=== PATIENT | male | born 1950 | race Caucasian/White ===

== ENCOUNTER 2020-07-11 08:20 | Outpatient (REF) | payer MEDICARE, SELFPAY ==
--- NOTE | 2020-07-11 08:25 | FL_ITS ---
EXAMINATION: XR GI SERIES CLINICAL INFORMATION: Heartburn. Reflux. COMPARISON: None TECHNIQUE: Fluoroscopic assessment of the upper GI tract was performed in various upright and supine/prone obliquities utilizing thin and thick high density barium contrast material and effervescent granules. FINDINGS: Normal oral bolus control and transfer. Normal posterior tilt of the epiglottis with elevation of the hyoid. The esophagus was normal in course, caliber, and contour. There was normal distensibility with no fixed segment of narrowing. No focal mucosal abnormality was identified. Mild esophageal dysmotility was observed. Contrast passed freely across the gastroesophageal junction into the stomach. There is a sliding hiatal hernia which is identified. This was not present with the patient in the upright position. Upon laying down and rolling on the table, a small to moderate sliding hiatal hernia was produced. There was normal distensibility of the stomach with no focal abnormality identified. There was prompt gastric emptying into the duodenum which demonstrated a normal appearance. Moderate to severe gastroesophageal reflux was observed, to the level of the thoracic inlet. FLUOROSCOPY TIME: 1.7 minutes DOSE AREA PRODUCT: 22.922 Gy-cm2 (ko-centimeter squared) IMPRESSION: Small to moderate sliding hiatal hernia. Moderate to severe gastroesophageal reflux is noted. Mild esophageal dysmotility.
== END 2020-07-11 08:21 | disposition home or self-care (01) ==
LOC: HO.XRAY 08:20
PROVIDERS: PCP Internal Medicine; Visit Provider Internal Medicine
DX: R12 Heartburn (principal)
CPT/HCPCS: 74240

== ENCOUNTER 2022-01-15 09:05 | Outpatient (REF) | payer MEDICARE, SELFPAY ==
[2022-01-15 11:11] LABS: MANUAL DIFF FLAG NO
[2022-01-15 11:27] LABS: Basophils Absolute Auto 0.1 X10*3/uL (0.0-0.2); Basophils Percent Auto 0.7 % (0-2); Eosinophils Absolute Auto 0.4 X10*3/uL (0.0-0.4); Eosinophils Percent Auto 5.3 % (0-4); Hematocrit 43.8 % (42.0-52.0); Hemoglobin 14.7 g/dl (14.0-18.0); Imm Gran Abs Auto 0.04 X10*3/uL (0.00-0.03); Imm Gran Pct Auto 0.5 % (0.0-0.4); Lymphocytes Absolute Auto 1.5 X10*3/uL (1.2-4.9); Lymphocytes Percent Auto 19.9 % (20-40); Mean Corpuscular HGB Conc 33.6 g/dl (31.0-36.0); Mean Corpuscular Hemoglobin 27.9 pg (27.0-33.0); Mean Corpuscular Volume 83.3 fL (80.0-98.0); Mean Platelet Volume 9.9 fL (9.4-12.4); Monocytes Absolute Auto 1.1 X10*3/uL (0.1-1.2); Neutrophils Absolute Auto 4.3 x10*3/uL (2.0-8.3); Neutrophils Percent Auto 58.6 % (45-73); Platelet Count 204 X10*3/uL (160-400); Red Blood Count 5.26 X10*6/uL (4.60-5.80); Red Cell Distribution Width 13.9 % (11.0-16.0); White Blood Count 7.4 X10*3/uL (4.8-10.8)
[2022-01-15 11:52] LABS: PSA,Total (Free>4and<10) 0.79 ng/mL (0.00-4.00); TSH reflex Free T4 1.35 uIU/mL (0.32-4.0); Vitamin D 25-OH Total 24.8 ng/mL (>30)
[2022-01-15 12:05] LABS: Alanine Aminotransferase 48 U/L (0-40); Anion Gap 11 (12-20); Aspartate Amino Transferase 39 U/L (5-37); Blood Urea Nitrogen 16 mg/dL (9-16); Calcium 9.4 mg/dL (8.4-10.2); Carbon Dioxide 25 mmol/L (22-29); Chloride 109 mmol/L (96-108); Cholesterol 80 mg/dL; Estimated Glomerular Filt Rate > 60; Glucose Fasting 95 mg/dL (60-99); HDL Cholesterol 32 mg/dL; LDL Cholesterol Calculated 32 mg/dl; Potassium 4.2 mmol/L (3.3-5.1); Sodium 141 mmol/L (135-145); Triglycerides 82 mg/dL
[2022-01-15 12:07] LABS: Folate 15.7 ng/mL (> or = 4.0); Vitamin B12 404 pg/mL (200-900)
== END 2022-01-15 09:06 | disposition home or self-care (01) ==
LOC: HO.HMGCLDS 09:05
PROVIDERS: PCP Internal Medicine; Visit Provider Internal Medicine
DX: Z00.00 Encounter for general adult medical examination without abnormal findings (principal); Z12.5 Encounter for screening for malignant neoplasm of prostate; K21.9 Gastro-esophageal reflux disease without esophagitis; Z71.89 Other specified counseling
CPT/HCPCS: 36415; 80048; 80061; 82306; 82607; 82746; 84153; 84443; 84450; 84460; 85025

== ENCOUNTER 2023-02-09 08:14 | Outpatient (REF) | payer MEDICARE, SELFPAY ==
--- NOTE | ~2023-02-09 | US_ITS ---
EXAMINATION: US RETROPERITONEAL LIMITED (RENAL ONLY) CLINICAL INFORMATION: Personal history of urinary calculi. COMPARISON: None available. TECHNIQUE: Real-time imaging of the kidneys. FINDINGS: RIGHT KIDNEY: 10.4 x 5.4 x 6.8 cm (SAG x AP x TRV). The kidney is normal in size, contour, and echogenicity. Renal cortical thickness is normal. No calculi or focal parenchymal lesions. No hydronephrosis. LEFT KIDNEY: 10.1 x 5.6 x 5.8 cm (SAG x AP x TRV). The kidney is normal in size, contour, and echogenicity. Renal cortical thickness is normal. No calculi or focal parenchymal lesions. No hydronephrosis. US/US renal BI IMPRESSION: No hydronephrosis or nephrolithiasis.
[2023-02-09 11:54] LABS: Alanine Aminotransferase 52 U/L (0-40); Albumin Level 3.9 g/dL (3.5-5.0); Alkaline Phosphatase 83 U/L (39-117); Anion Gap 12 (12-20); Aspartate Amino Transferase 43 U/L (5-37); Bilirubin Total 0.9 mg/dL (0.0-1.0); Blood Urea Nitrogen 11 mg/dL (9-16); Calcium 9.4 mg/dL (8.4-10.2); Carbon Dioxide 27 mmol/L (22-29); Chloride 108 mmol/L (96-108); Cholesterol 87 mg/dL; Estimated Glomerular Filt Rate > 60; Glucose Fasting 110 mg/dL (60-99); HDL Cholesterol 28 mg/dL; LDL Cholesterol Calculated 16 mg/dl; Potassium 3.6 mmol/L (3.3-5.1); Sodium 143 mmol/L (135-145); Triglycerides 217 mg/dL
[2023-02-09 12:16] LABS: PSA,Total (Free>4and<10) 1.13 ng/mL (0.00-4.00); Vitamin D 25-OH Total 24.9 ng/mL (>30)
== END 2023-02-09 08:15 | disposition home or self-care (01) ==
LOC: HO.HMGCX 08:14
PROVIDERS: PCP Internal Medicine; Visit Provider Internal Medicine
DX: Z00.01 Encounter for general adult medical examination with abnormal findings (principal); Z12.5 Encounter for screening for malignant neoplasm of prostate; K21.9 Gastro-esophageal reflux disease without esophagitis; Z87.442 Personal history of urinary calculi
CPT/HCPCS: 36415; 76775; 80053; 80061; 82306; 84153

== ENCOUNTER 2024-07-27 14:35 | Outpatient (AMB) | payer MEDICARE, SELFPAY ==
--- NOTE | 2024-07-27 14:52 | A.OFFPC_ITS ---
Vital Signs 07/27/24 14:55 Height 5 ft 6 in Weight 168 lb BMI 27.1 BP 138/70 Blood Pressure Location Lt brachial Position Sitting Pulse 70 Pulse Source Pulse Oximeter Pulse Oximetry (%) 99 Oxygen Delivery Method Room Air Intake Visit Reasons: PE Intake Note: Pt is here today for her PE: last 11/21/19 Allergies No Known Allergies Allergy (Verified 07/27/24 15:17) Medication List - Last Reconciled 07/27/24 by Carmen Rivera MD cholecalciferol (vitamin D3) 25 mcg PO DAILY famotidine 20 mg PO DAILY omega-3 fatty acids (Fish Oil Concentrate) 1,000 mg PO DAILY Tobacco use date assessed: 07/27/24 Fall risk assessment: No Falls in past year Last assessed Fall Risk: 07/27/24 Dental Screening Dental Screen Date: 07/27/24 Did you have a dental visit in the last 12 months?: Yes Did you have a dental problem in the last 6 months where you did not have access to dental care?: Yes Was dental information given to patient?: Patient has dentist HPI PE HPI Details 74-year-old male here today for physical exam. He has been feeling well, last colonoscopy was done in 2019 which removal of a tubular adenoma, for repeat colonoscopy in 2024. He takes famotidine for his GERD and sliding hiatal hernia. Up-to-date with all his vaccinations including his shingles vaccine, Tdap and pneumonia vaccine, but has not yet had his yearly flu shot and COVID booster PFSH Medical History (Updated 07/27/24 @ 15:27 by Carmen Rivera MD) Elevated liver transaminase level Hypertriglyceridemia Impaired fasting glucose Hx of renal calculi Erectile dysfunction Esophageal dysmotility Sliding hiatal hernia GERD (gastroesophageal reflux disease) Surgical History History of cataract surgery H/O vasectomy History of tonsillectomy and adenoidectomy History of appendectomy Family History Father Unknown family medical history Mother Unknown family medical history Social History Housing: House Alcohol intake: current Patient Tobacco Use Status: Never used Tobacco e-Cigarette/Vaping Use: Never Used Advance Directives Date on File: 07/11/20 service: No Current occupational status: retired Cognitive needs: No Hearing needs: No Vision needs: Yes Questionnaire PHQ-9 Over the last 2 weeks, how often have you been bothered by any of the following problems? 1. Little interest or pleasure in doing things: not at all 2. Feeling down, depressed, or hopeless: not at all 3. Trouble falling or staying asleep, or sleeping too much: not at all 4. Feeling tired or having little energy: not at all 5. Poor appetite or overeating: not at all 6. Feeling bad about yourself - or that you are a failure or have let yourself or your family down: not at all 7. Trouble concentrating on things, such as reading the newspaper or watching television: several days 8. Moving or speaking so slowly that other people could have noticed. Or the opposite - being so fidgety or restless that you have been moving around a lot more than usual: not at all 9. Thoughts that you would be better off or of hurting yourself in some way: not at all Total score: 1 Depression Screening Interpretation: Negative Depression Screening Done: Yes 10292 - PHQ-9 Billing: Yes Source: Developed by Drs. Eliazar Clancy, Anabel Burnett, Zhou Kenney and colleagues, with an educational olya from [employer]. Thrive Questionnaire Date Thrive assessed: 01/18/23 I am a: Patient What is your living situation today?: I have a steady place to live Within the past 12 months, did the food you bought not last and you didn't have the money to get more?: Never true Within the past 12 months, did you worry whether your food would run out before you got money to buy more?: Never true Do you have trouble paying for medicines?: No Do you have trouble getting transportation to medical appointments?: No Do you have trouble paying your heating and electricity bill?: No Do you have trouble taking care of your child, family member or friend?: No Do you have trouble with day-to-day activities such as bathing, preparing meals, shopping, managing finances, etc.?: No Are you currently unemployed and looking for a job?: No Are you interested in more education?: No Please select the resources that you would like help with: None Currently or been in a relationship where the following occur: No concerns reported THRIVE Score: 0 AUDIT C Alcohol Use Questionnaire (AUDIT-C) 1. How often do you have a drink containing alcohol?: Monthly or less 2. How many drinks containing alcohol do you have on a typical day when you are drinking?: 1 or 2 3. How often do you have six or more drinks on one occasion?: Never Total Score: 1 RIP-7 AMB Questionnaire RIP-7 Date RIP - 7 assessed: 01/18/23 Feeling nervous, anxious, or on edge: 0 = Not at all Not being able to stop or control worryin = Not at all Worrying too much about different things: 0 = Not at all Trouble relaxin = Not at all Being so restless that it is hard to sit still: 0 = Not at all Becoming easily annoyed or irritable: 0 = Not at all Feeling afraid as if something awful might happen: 0 = Not at all Total RIP-7 score (0-4 normal; 5-9 mild; 10-14 moderate; 15-21 severe): 0 Source: Developed by Drs. Eliazar Clancy, Anabel Burnett, Zhou Kenney and colleagues, with an educational olya from [employer]. RIP-7 Assessment Billing RIP-7 Assessment Tool: RIP-7 Assessment 29508 Review of Systems Const Denies body aches, Denies fatigue, Denies fever(s), Denies headache(s) and Denies weakness Eyes Reports no additional complaints and Reports requires corrective lenses ENT Denies halitosis, Denies change in voice, Denies dysphagia, Denies dizziness, Denies dry mouth, Denies headache(s), Denies nasal congestion, Denies nasal discharge, Denies sore throat and Denies throat swelling Card Denies chest pain, Denies lightheadedness, Denies palpitations and Denies dyspnea Resp Denies chest congestion, Denies cough, Denies dyspnea and Denies wheezing GI Denies abdominal pain, Denies change in bowel habits, Denies dysphagia and Denies heartburn Denies dysuria, Denies urinary frequency and Denies urinary urgency Musc Reports no additional complaints Skin/Breast Denies rash Neuro Denies dizziness, Denies headache(s) and Denies weakness Psych Reports no additional complaints Endo Denies fatigue and Denies palpitations Amor/Lymph Denies easy bleeding and Denies easy bruising Aller/Immun Denies throat swelling and Denies wheezing Physical exam (Primary Care) Vital Signs: Last Vital Signs Pulse 70 07/27/24 14:55 BP 138/70 07/27/24 14:55 Pulse Ox 99 07/27/24 14:55 Oxygen Delivery Method Room Air 07/27/24 14:55 BMI result Body Mass Index 27.1 Tobacco/Smoking Status: Tobacco use Status Tobacco use date assessed 07/27/24 07/27/24 15:00 Patient Tobacco Use Status Never used Tobacco 07/27/24 15:00 e-Cigarette/Vaping Use Never Used 07/27/24 15:00 PHQ-9: PHQ-9 Score PHQ-9: Total score 1 07/27/24 15:21 Depression Screening Interpretation: Negative Thrive Assessment: Date of Thrive Assessment Date Thrive assessed 01/18/23 07/27/24 15:00 Currently or been in a relationship where the following occur: No concerns reported Advance Care Planning discussion: Completed/Scanned Date of discussion: 07/27/24 Who was present: Patient Forms completed: Health Care Proxy Time spent: 16-45 minutes Actual minutes spent: 2 Const General: no acute distress and alert Orientation/consciousness: patient oriented x3 HENMT Ears: external ears normal, TM's normal bilaterally and EAC's normal General nose exam: Normal external nose present and No nasal discharge present Mouth: oropharynx normal and moist mucous membranes Eyes General: appearance normal, both eyes and all related structures Conjunctivae: conjunctivae normal Sclerae: sclerae normal Pupils: Equal, round and reactive pupils present EOM: EOMs intact bilaterally Neck Neck: Yes full ROM, Yes no lymphadenopathy and Yes supple Chest Chest palpation & inspection: normal inspection of the chest Resp Effort & Inspection: normal respiratory effort and able to speak in complete sentences Auscultation: clear to auscultation bilaterally Cardio Rate: regular rate Rhythm: regular rhythm Heart sounds: S1 normal heart sound present and S2 normal heart sound present GI Palpation (GI): Soft to palpation, nontender and no masses Auscultation: normal bowel sounds General: Yes no CVA tenderness Male General Exam: Yes normal external exam Back/Spine/Pelvis Other: Mild kyphosis noted Back: no CVA tenderness and No back tenderness Skin General skin exam: no rashes or lesions noted Neuro General: patient oriented x3, gait normal, tone normal, moves all extremities, Normal light touch and pain sensation and no focal motor deficits Cranial nerves: Yes CN's II-XII intact bilaterally and Yes Equal, round and reactive pupils present Cognition (Neuro): normal cognition Extrem General: Yes full ROM, Yes no joint enlargement, Yes no clubbing, cyanosis or edema and Yes no calf tenderness Psych Appearance: grossly normal and well kempt Mental Status: mental status grossly normal Speech and movement: Normal speech and movement present Affect: normal affect Attitude: cooperative Thought process: Normal thought process present Coding Level of Care Code Est Pt Prev Care >65y(77184) Diagnoses Annual visit for general adult medical examination with abnormal findings Z00.01 Gastroesophageal reflux disease without esophagitis K21.9 Esophagitis presence: without esophagitis Impaired fasting glucose R73.01 Hypertriglyceridemia E78.1 Elevated liver transaminase level R74.01 Encounter for counseling regarding advance directives Z71.89 Additional Codes RIP-7 Assessment Billing - RIP-7 Assessment Tool: RIP-7 Assessment 64187 ([id number]) Vital Signs *Quality* - Advance Care Planning discussion: Completed/Scanned ([id number]) Vital Signs *Quality* - Time spent: 16-45 minutes ([id number]) Assessment & Plan Assessment & Plan (1) Annual visit for general adult medical examination with abnormal findings: Code(s): Z00.01 - Encounter for general adult medical examination with abnormal findings Plan: Will check appropriate labs. Continue regular dental visit every 6 months and regular eye exams, at least every 2 years. Take adequate calcium in diet and vitamin-D 3 at 2000 IU per cap once a day, in addition to weight-bearing exercises to help maintain good muscle tone and weight control. Instructed to do self testicular exam check for any mass. Up-to-date with his screening colonoscopy, due again in 2024. Up-to-date with all his vaccinations except for his flu and COVID booster (2) GERD (gastroesophageal reflux disease): Code(s): K21.9 - Gastro-esophageal reflux disease without esophagitis Category: Medical Qualifiers: Esophagitis presence: without esophagitis Qualified Code(s): K21.9 - Ga stro-esophageal reflux disease without esophagitis Plan: Takes famotidine 20 mg daily (3) Impaired fasting glucose: Code(s): R73.01 - Impaired fasting glucose Category: Medical Plan: Your previous fasting blood sugars were elevated above 100 mg/dL. Impaired glucose metabolism increases the risk for developing diabetes mellitus type 2, as well as heart attack and stroke later on. Lifestyle changes that promotes weight loss, healthy eating habits, and regular exercise are important, and can prevent the progression to diabetes (4) Hypertriglyceridemia: Code(s): E78.1 - Pure hyperglyceridemia Category: Medical Plan: Comprehensive metabolic panel and fasting lipid panel ordered. Reminded to follow-up in low-cholesterol diet and regular exercise, at least 30 minutes 3 to 4 times a week, not running anymore due to joint pain but advised to try medic exercises, assume at the local [facility]. Advised patient to make healthy food choices, eat more fruits, vegetables, whole grains, wild caught fish and low- fat dairy. Limit amount of meat and fried or fatty food products, as well as processed foods and fast foods. (5) Elevated liver transaminase level: Code(s): R74.01 - Elevation of levels of liver transaminase levels Category: Medical Plan: Comprehensive metabolic panel ordered, advised to stop alcohol intake (6) Encounter for counseling regarding advance directives: Code(s): Z71.89 - Other specified counseling Plan: Initiated the conversation about Advanced Directives. Advanced Directives help patients prepare for current and future decisions about their medical treatment and place of care. Discussed with patient that it is a process where a patients current condition and prognosis are reviewed, their wishes for information regarding their illness are elicited, and likely medical dilemmas are presented and options discussed. Healthcare proxy form completed. The form can be amended as needed, reviewed yearly and make changes as needed Orders: Orders Vitamin D 25-OH Total 07/27/24 E78.1 - Pure hyperglyceridemia, K21.9 - Gastro- esophageal reflux disease without esophagitis, R73.01 - Impaired fasting glucose, R74.01 - Elevation of levels of liver transaminase levels, Z00.01 - Encounter for general adult medical examination with abnormal findings, Z71.89 - Other specified counseling Lipid Panel 07/27/24 E78.1 - Pure hyperglyceridemia, K21.9 - Gastro-esophageal reflux disease without esophagitis, R73.01 - Impaired fasting glucose, R74.01 - Elevation of levels of liver transaminase levels, Z00.01 - Encounter for general adult medical examination with abnormal findings, Z71.89 - Other specified counseling Comprehensive [place]. Panel Fast 07/27/24 E78.1 - Pure hyperglyceridemia, K21.9 - Gastro-esophageal reflux disease without esophagitis, R73.01 - Impaired fasting glucose, R74.01 - Elevation of levels of liver transaminase levels, Z00.01 - Encounter for general adult medical examination with abnormal findings, Z71.89 - Other specified counseling
[2024-07-27 14:55] VITALS: BP 138/70; PULSE 70; O2SAT 99; BMI 27.1
== END 2024-07-27 15:40 | disposition home or self-care (01) ==
LOC: HO.HMCC 14:37
PROVIDERS: PCP Internal Medicine; Visit Provider Internal Medicine
DX: Z00.01 Encounter for general adult medical examination with abnormal findings (principal); K21.9 Gastro-esophageal reflux disease without esophagitis; R73.01 Impaired fasting glucose; E78.1 Pure hyperglyceridemia; R74.01 Elevation of levels of liver transaminase levels; Z71.89 Other specified counseling; Z00.00 Encounter for general adult medical examination without abnormal findings

== ENCOUNTER → 2024-07-27 14:35 | Outpatient (BNVA) | payer MEDICARE, SELFPAY | PROVIDERS: PCP Internal Medicine; Visit Provider Internal Medicine | DX: Z00.01 Encounter for general adult medical examination with abnormal findings (principal); K21.9 Gastro-esophageal reflux disease without esophagitis; R73.01 Impaired fasting glucose; R74.01 Elevation of levels of liver transaminase levels; E78.1 Pure hyperglyceridemia; Z71.89 Other specified counseling | CPT/HCPCS: 96127; 99397; 99497 ==

== ENCOUNTER 2024-09-09 08:12 | Outpatient (REF) | payer MEDICARE, SELFPAY ==
--- OUTSIDE RECORDS SUMMARY | 2024-09-09 08:14 | XMS_ITS | Patient Health Record ---
Author Organization [facility] Address [address] [place] [address] Care Team Providers Care Portable Canteen Operator Name Role Phone Miguel GRIMES, Carmen Primary Care Provider Eliazar Waddell Unavailable [phone] REASON FOR REFERRAL Referring Provider First Name Carmen Referring Provider Last Name Miguel Referring Provider Speciality Internal M edicine Referred Organization [facility] Referred Provider Eliazar Armando Referred Address [address],[place], [place],[address], Referred Provider Specialty Gastroentero logy General Notes Sharona Conley 024 03:40:38 PM EST > spoke with Yuli from Dr. Rivera' office to request an [facility] referral for visit with Dr. Armando on 10-04-2023 for a screening colon [phone] Referral Priority Routine MEDICATIONS Medication SIG (Take, Route, Frequency, Duration) Notes Start Date End Date Status Fish Oil 1000 MG 1 capsule Orally Onc e a day Active Aspirin 81 81 MG 1 tablet Orally Once a day Active Vitamin D (Ergocalciferol) 1 capsule Ora lly once a week Active IMMUNIZATIONS Vaccine Route Administration Date Status Comme nts Influenza Unknown 06/27/2019 Administered SOCIAL HISTORY Tobacco Use: Social History Observation Description Date Details (start date - stop date) Never Smoker NA - NA Sex Assigned At : Social History Observation Description Sex Assigned At Unknown Tobacco Use/Smoking Question Answer Notes Patient is a nonsmoker Alcohol Screen Question Answer Notes Did you have a drink contain ing alcohol in the past year? Yes How often did you have a dri nk containing alcohol in the past year? 2 to 3 times a week (3 points) How many drinks did you have on a typical day when you were drinking in the past year? 1 or 2 drinks (0 point) How often did you have 6 or more drinks on one occasion in the past year? Never (0 point) Points 3 Interpretation Negative PROBLEMS Problem Type ICD Code Onset Dates Problem Status W/U Status Risk SNOMED Code Notes Problem Encounter for screening for malignant neoplasm of colon (Z12.11) Active confirmed 365407098 Problem Preprocedural examination (Z01.818) Active confirmed [id number] PLAN OF TREATMENT Future Test Test Name Order Date COLONOSCOPY 10/31/2019 Next Appt Details Provider Name:Eliazar Armando , 10/04/2024 01:00:00 PM, [address] [place] [address], [address], [place], [address], Insurance Providers Payer Name Payer Address Payer Phone Subscriber Number Group Number Insured Name Patient Relationship to Insured Coverage Start Date Coverage End Date [facility] [address] [place] [address] [id number] FLOREZ Self - patient is the insured MEDICAL (GENERAL) HISTORY Medical History History ICD Code Denies MT,DM,CVA,Lung disease,renal dise ase Neg screening colonoscopy in 08/2009 exc ept for a hyperplastic polyp Surgical History Surgery Date(Month/Year) tonsillectomy vasectomy cataract right eye appendectomy
[2024-09-09 12:07] LABS: Alanine Aminotransferase 43 U/L (0-40); Albumin Level 4.4 g/dL (3.5-5.0); Alkaline Phosphatase 81 U/L (39-117); Anion Gap 10 (12-20); Aspartate Amino Transferase 43 U/L (5-37); Bilirubin Total 0.7 mg/dL (0.0-1.0); Blood Urea Nitrogen 10 mg/dL (9-16); Calcium 10.1 mg/dL (8.4-10.2); Carbon Dioxide 30 mmol/L (22-29); Chloride 106 mmol/L (96-108); Cholesterol 92 mg/dL (<200); Estimated Glomerular Filt Rate > 60; Glucose Fasting 104 mg/dL (60-99); HDL Cholesterol 33 mg/dL (>40); LDL Cholesterol Calculated 42 mg/dL (<100); Sodium 142 mmol/L (135-145); Total Protein 8.1 g/dL (6.5-8.0); Triglycerides 86 mg/dL (<150)
[2024-09-09 12:08] LABS: Vitamin D 25-OH Total 45.4 ng/mL (>30)
== END 2024-09-09 08:13 | disposition home or self-care (01) ==
LOC: HO.HMGCLDS 08:12
PROVIDERS: PCP Internal Medicine; Visit Provider Internal Medicine
DX: Z00.01 Encounter for general adult medical examination with abnormal findings (principal); R73.01 Impaired fasting glucose; E78.1 Pure hyperglyceridemia; R74.01 Elevation of levels of liver transaminase levels; K21.9 Gastro-esophageal reflux disease without esophagitis; Z71.89 Other specified counseling
CPT/HCPCS: 36415; 80053; 80061; 82306

== ENCOUNTER 2024-11-27 13:38 | Day surgery (SDC) | payer MEDICARE, SELFPAY ==
[2024-10-25 15:07] VITALS: BMI 27.1
--- NOTE | 2024-10-26 10:01 | HO.ANESPROP2 ---
Documented by User: Aniyah Pace NP 11/07/24 14:36 HPI - Anesthesia Eval Consult details Narrative: 74yo M for Colonoscopy, 11/27/24 [facility] Active Problems Active Problems: All Active Problems Elevated liver transaminase level (Acute) Hypertriglyceridemia (Acute) Impaired fasting glucose (Acute) Hx of renal calculi (Acute) GERD (gastroesophageal reflux disease) (Acute) Past Medical History Medical History Elevated liver transaminase level Hypertriglyceridemia Impaired fasting glucose Hx of renal calculi Erectile dysfunction Esophageal dysmotility Sliding hiatal hernia GERD (gastroesophageal reflux disease) Family History Family History Father Unknown family medical history Mother Unknown family medical history Surgical History Surgical History History of cataract surgery H/O vasectomy History of tonsillectomy and adenoidectomy History of appendectomy Social History Social History Housing: House Alcohol intake: current Patient Tobacco Use Status: Never used Tobacco e-Cigarette/Vaping Use: Never Used Use of substances other than those prescribed or required for medical reasons: No Are you DNR?: No Advance Directives: No Advance Directives Information Provided: Yes Advance Directives Date on File: 07/11/20 service: No Current occupational status: retired Cognitive needs: No Hearing needs: No Vision needs: Yes Meds Allergies Allergy/AdvReac Type Severity Reaction Status Date / Time No Known Allergies Allergy Verified 11/27/24 13:46 Home Medications ?Medication ?Instructions ?Recorded ?Confirmed ?Last Taken ?Type cholecalciferol (vitamin D3) 25 25 mcg PO DAILY 07/19/20 10/25/24 Unknown History mcg (1,000 unit) capsule famotidine 20 mg tablet 20 mg PO DAILY PRN Heartburn 01/18/23 10/25/24 Unknown History omega-3 fatty acids 1,000 mg 1,000 mg PO DAILY 10/25/24 10/25/24 10/30/24 History capsule Exam Height,Weight and Vital Signs: Height 5 ft 6 in Weight 76.204 kg Assessment and Plan Assessment Anesthesia Assessment: Chart Reviewed Documented by User: Sridevi De La Rosa MD 11/27/24 15:56 PMFSH Past Medical History Medical History Elevated liver transaminase level Hypertriglyceridemia Impaired fasting glucose Hx of renal calculi Erectile dysfunction Esophageal dysmotility Sliding hiatal hernia GERD (gastroesophageal reflux disease) Family History Family History Father Unknown family medical history Mother Unknown family medical history Family history of problems with anesthesia: No Surgical History Surgical History History of cataract surgery H/O vasectomy History of tonsillectomy and adenoidectomy History of appendectomy History of Problems with Anesthesia: No Social History Social History Housing: House Alcohol intake: current Patient Tobacco Use Status: Never used Tobacco e-Cigarette/Vaping Use: Never Used Use of substances other than those prescribed or required for medical reasons: No Are you DNR?: No Advance Directives: No Advance Directives Information Provided: Yes Advance Directives Date on File: 07/11/20 service: No Current occupational status: retired Cognitive needs: No Hearing needs: No Vision needs: Yes Meds Allergies Allergy/AdvReac Type Severity Reaction Status Date / Time No Known Allergies Allergy Verified 11/27/24 13:46 Home Medications ?Medication ?Instructions ?Recorded ?Confirmed ?Last Taken ?Type cholecalciferol (vitamin D3) 25 25 mcg PO DAILY 07/19/20 10/25/24 Unknown History mcg (1,000 unit) capsule famotidine 20 mg tablet 20 mg PO DAILY PRN Heartburn 01/18/23 10/25/24 Unknown History omega-3 fatty acids 1,000 mg 1,000 mg PO DAILY 10/25/24 10/25/24 10/30/24 History capsule Exam Airway Mallampati Class: III TM Dist: >3cm Neck ROM: Full Assessment and Plan Assessment Anesthesia Assessment: Anesthesia Plan Discussed Final Anesthetic Review Family History of Problems with Anesthesia: No History of Problems with Anesthesia: No NPO: Yes ASA Class: II Final Preanesthetic Review: No Changes in Pt Med Stat, Meds/Allgs Chart Reviewed, Consent Obtained/Reviewed, Anes Risks/Benef Reviewed and DNR Form (If Appl.) Patient Risk: Low Procedure Risk: Low Anesthetic Plan Anesthetic Plan: TIVA Disposition: Standard PACU
[2024-11-27 13:49] VITALS: BP 152/76; PULSE 69; RESP 15; TEMP 36.7; O2SAT 100; BMI 25.8
[2024-11-27] MEDS: Lactated Ringers 1,000 ML 100 ML IVCONT (14:09)
[2024-11-27 16:32] VITALS: BP 132/66; PULSE 70; RESP 15; TEMP 36.2; O2SAT 97
--- NOTE | 2024-11-27 16:36 | PM.OP ---
Brief Operative Note Date of Service: 11/27/24 Pre-op diagnosis: Screening Post-op diagnosis: other (Diverticulosis) Procedure: Colonoscopy to the cecum and TI Surgeon: Eliazar Armando MD Anesthesia: MAC Was an Radio Station Operator used for this Procedure?: No Estimated blood loss (mL): 0 Pathology: none sent Condition: stable Disposition: PACU
[2024-11-27 16:47] VITALS: BP 129/67; PULSE 61; RESP 15; O2SAT 99
[2024-11-27 17:02] VITALS: BP 143/70; PULSE 60; RESP 14; O2SAT 99
[2024-11-27 17:17] VITALS: BP 150/76; PULSE 57; RESP 15; O2SAT 99
[2024-11-27 17:30] VITALS: BP 168/85; PULSE 65; RESP 18; TEMP 36.1; O2SAT 99
--- NOTE | 2024-11-27 23:42 | OP_ITS ---
DATE OF SERVICE: 11/27/2024 SURGEON: Eliazar Armando MD INDICATIONS: The patient presents for evaluation of personal history of tubular adenoma of the colon and colorectal cancer screening. Full consent has been obtained from him for this, including risks of bleeding and perforation. PREOPERATIVE DIAGNOSIS: POSTOPERATIVE DIAGNOSIS: PROCEDURE PERFORMED: Colonoscopy to cecum and terminal ileum. ESTIMATED BLOOD LOSS: COMPLICATIONS: ANESTHESIA: Medication used, monitored anesthesia care. ASSISTANTS: SPECIMENS: PREOPERATIVE DIAGNOSES: Colorectal cancer screening and personal history of tubular adenoma of the colon. POSTOPERATIVE DIAGNOSES: Colorectal cancer screening and personal history of tubular adenoma of the colon, diverticulosis and internal hemorrhoids. DESCRIPTION OF PROCEDURE: The patient was placed in the left lateral decubitus position. The digital rectal exam revealed no abnormalities. The Olympus video pediatric colonoscope was entered into the rectum and advanced easily to the cecum. Once in the cecum, I did identify normal-appearing cecal pouch with appendiceal orifice and a normal-appearing ileocecal valve. The terminal ileum was cannulated and appeared normal. The scope was withdrawn back in the colon. The entire cecum and ileocecal valve appeared normal. The scope was slowly withdrawn assessing all mucosal surfaces carefully. Preparation was excellent. I did not visualize any sign of polyps, colitis, nor angiodysplasia. There was a mild amount of sigmoid diverticulosis. In the rectum, scope was retroflexed visualizing internal hemorrhoids, but no other pathology. The rectal mucosa appeared normal. Scope was straightened and withdrawn from the patient. He tolerated the procedure well. He was returned to the recovery area in stable condition. IMPRESSION: 1. Diverticulosis. 2. Internal hemorrhoids. PLAN: Given today's negative exam and his age, I do not think he will need any further screening colonoscopies. As such, he will see me on a p.r.n. basis. MD OBI Lopez/NIKKI / [id number] JAYLEEN
== END 2024-11-27 18:10 | disposition home or self-care (01) ==
PROVIDERS: PCP Internal Medicine; Visit Provider Internal Medicine
PROC: 0DJD8ZZ Inspection of Lower Intestinal Tract, Via Natural or Artificial Opening Endoscopic (ICD-10-PCS; CPT 45378; principal; 2024-11-27 14:30)
DX: Z12.11 Encounter for screening for malignant neoplasm of colon (principal); Z86.0101 Personal history of adenomatous and serrated colon polyps; K57.30 Diverticulosis of large intestine without perforation or abscess without bleeding; K64.8 Other hemorrhoids; Z79.899 Other long term (current) drug therapy; Z98.890 Other specified postprocedural states
CPT/HCPCS: G0105; J2003; J2704

== ENCOUNTER 2025-02-12 13:18 | Emergency (ER) | payer MEDICARE, SELFPAY ==
--- NOTE | 2025-02-12 13:28 | ED_ITS ---
HPI - General Adult General Chief complaint: Animal Bite Stated complaint: DOG BITE & CAT SCRATCH X1M,?INF THUMB PER EMS Time Seen by Provider: 02/12/25 15:45 Source: patient and EMS Mode of arrival: EMS Limitations: no limitations History of Present Illness ED Provider: Machelle Sanchez PA-C HPI narrative: Patient is a 74 year old assigned male at with a history of elevated LFTs presenting to the emergency department today with a left hand dog bite, left wrist dog bite, and an abdominal dog bite. Patient states that a few weeks ago his friend bought her dog over who bit him several times and his friend saw the bites today and was worried so recommended he come to the ER. Patient states that he does not know when his last tetanus shot was. Patient states that the dog is up to date on it's shots and it will not be in the house any longer. Patient denies any dizziness, lightheadedness, abdominal pain, nausea, vomiting, fever, chills, blurry vision, double vision, loss of vision, chest pain, difficulty breathing, shortness of breath, back pain, night sweats, pain with urination, increased urinary frequency, increased urinary urgency, blood in his urine or stool, syncope or a near syncopal episode, bowel incontinence, bladder incontinence, or any other complaints at this time. Onset (ago): week(s) Relieving factors: none Exacerbating factors: none Associated symptoms: denies other symptoms Treatments prior to arrival: none Related Data Home Medications ?Medication ?Instructions ?Recorded ?Confirmed cholecalciferol (vitamin D3) 25 25 mcg PO DAILY 07/19/20 10/25/24 mcg (1,000 unit) capsule famotidine 20 mg tablet 20 mg PO DAILY PRN Heartburn 01/18/23 10/25/24 omega-3 fatty acids 1,000 mg 1,000 mg PO DAILY 10/25/24 10/25/24 capsule Previous Rx's ?Medication ?Instructions ?Recorded amoxicillin 875 mg-potassium 1 tab PO BID 10 days #20 tabs 02/12/25 clavulanate 125 mg tablet Allergies Allergy/AdvReac Type Severity Reaction Status Date / Time No Known Allergies Allergy Verified 02/12/25 13:33 Review of Systems 2 Constitutional: Constitutional: Reports no additional constitutional complaints, Denies chills, Denies fever(s) and Denies night sweats Eyes: Eyes: Reports no additional eye complaints, Denies blurry vision, Denies change in vision, Denies diplopia, Denies eye discharge, Denies loss of vision and Denies eye pain ENT: Denies dizziness Cardiovascular: Cardiovascular: Reports no additional cardiovascular complaints, Denies chest pain, Denies lightheadedness, Denies Loss of Consciousness and Denies dyspnea Respiratory: Respiratory: Reports no additional respiratory complaints and Denies dyspnea Gastrointestinal: Gastrointestinal: Reports no additional gastrointestinal complaints, Denies abdominal pain, Denies melena, Denies hematochezia, Denies change in bowel habits and Denies change in stool character Genitourinary: Genitourinary: Reports no additional male genitourinary complaints, Denies hematuria, Denies oliguria, Denies difficulty urinating, Denies dysuria, Denies urinary frequency, Denies urinary hesitancy, Denies urinary incontinence and Denies urinary urgency Musculoskeletal: Musculoskeletal: Reports no additional musculoskeletal complaints, Denies numbness and Denies tingling Comments: dog bite to left thumb, left wrist, and left lower abdomen Neurologic: Denies dizziness, Denies loss of vision, Denies numbness and Denies tingling Psychiatric: Psychiatric: Reports no additional psychiatric complaints Endocrine: Endocrine: Reports no additional endocrine complaints Hematologic/Lymphatic: Hematologic/Lymphatic: Reports no additional hematologic/lymphatic complaints Allergic/Immunologic: Allergic/Immunologic: Reports no additional allergic/immunologic complaints PMFSH Past Medical History Attestation statement: The following information was validated with the patient. Source: old records reviewed and nursing notes reviewed Medical History Elevated liver transaminase level Hypertriglyceridemia Impaired fasting glucose Hx of renal calculi Erectile dysfunction Esophageal dysmotility Sliding hiatal hernia GERD (gastroesophageal reflux disease) Surgical History History of cataract surgery H/O vasectomy History of tonsillectomy and adenoidectomy History of appendectomy Family History Family History Father Unknown family medical history Mother Unknown family medical history Social History Social History Housing: House Alcohol intake: current Patient Tobacco Use Status: Never used Tobacco e-Cigarette/Vaping Use: Never Used Advance Directives: Yes Advance Directives Information Provided: Yes Advance Directives on File: Yes Advance Directives Date on File: 07/11/20 service: No Current occupational status: retired Cognitive needs: No Hearing needs: No Vision needs: Yes Physical Exam ED Vital Signs: Vital Signs - 24 hr 02/12/25 13:30 Temperature 97.2 F Pulse Rate 66 Respiratory Rate 16 Blood Pressure 122/83 Pulse Oximetry 100 Oxygen Delivery Method Room Air BMI result Body Mass Index 27.7 Const General: cooperative, no acute distress, alert and awake Nutritional Appearance: well nourished Orientation/consciousness: patient oriented x3 HENMT Head: Yes normal to inspection and Yes atraumatic Ears: hearing grossly normal bilaterally and external ears normal General nose exam: Normal external nose present, no nasal discharge noted and no epistaxis Face and sinus: Yes normal facial exam, No abrasion and No laceration Mouth: Normal oral and palatal mucosa present, no drooling and no muffled voice Eyes General: appearance normal, both eyes and all related structures Periorbital: periorbital findings normal Eyelids: Yes eyelids normal Conjunctivae: conjunctivae normal Pupils: Equal, round and reactive pupils present EOM: EOMs intact bilaterally Neck Neck: Yes normal visual inspection, Yes full ROM and Yes no lymphadenopathy Resp Effort & Inspection: normal respiratory effort and able to speak in complete sentences GI Other: Neuro General: patient oriented x3, moves all extremities and CN's II-XI intact bilaterally Cranial nerves: Yes Equal, round and reactive pupils present Cognition (Neuro): normal cognition Extrem Other: General: Yes full ROM and Yes capillary refill normal Psych Appearance: grossly normal Mental Status: mental status grossly normal Affect: normal affect Attitude: cooperative Thought process: Normal thought process present Thought content: Normal thought content present Insight: Good insight present (Psych) Course Course Course Narrative: RME performed by Machelle Sanchez PA-C. Patient is a 74 year old assigned male at presenting to the emergency department with multiple areas of dog bites / scratches from his friends dog. Patient states he was bitten and scratched by his friends dog who is no longer living in the house. Patient states that he was not worried about it but his friend was and told him to come here. Patient states that he does not know if the dog was up to date on shots. Detailed physical exam and review of systems are deferred to the staffing analyst. Labs ordered. Patient placed back in the waiting room pending room availability and results. Medications Administered Discontinued Medications Generic Name Dose Route Start Last Admin Trade Name George PRN Reason Stop Dose Admin Diphtheria/Tetanus/Acell Pertussis 0.5 ml 02/12/25 15:47 02/12/25 15:53 Diphth,Pertus(Acell),Tet Adult 0.5 Ml Syringe IM 02/12/25 15:48 0.5 ml .ONCE ONE Administration Medical Decision Making Medical Decision Making MDM Narrative: Patient is a 74 year old assigned male at with a history of elevated LFTs presenting to the emergency department today with a left hand dog bite, left wrist dog bite, and an abdominal dog bite. Patient's physical exam was as noted in the physical exam portion of this note. Patient's PMS + ROM in the LUE - including the hand was normal. Patient's blood work was unremarkable. I explained my physical exam findings as well as all test results to the patient. I answered all questions asked by the patient. PAtient brought up to date on his tetanus status. Patient's clinical presentation is most consistent with a cellulitis secondary to a dog bite however - there is no evidence of abscess. I stressed the importance of the patient taking his medication as directed (either prescribed or as the over the counter packaging recommends). I stressed the importance of the patient following up with his primary care provider and a hand specialist. I stressed the importance of the patient returning to the emergency department immediately if his symptoms were to worsen or if he were to develop any dizziness, shortness of breath, difficulty breathing, chest pain, blurry vision, loss of vision, nausea, vomiting, abdominal pain, fever, chills, back pain, or any other complaints. Patient verbalized agreement and understanding with this treatment plan and discharge. Differential Diagnosis Differential Diagnoses: The differential diagnosis associated with the presentation includes Dog bite to hand Dog bite to thumb Dog bite to abdomen Admission/Observation Consideration of admission/observation: Escalation of care including admission/observation considered Patient would have been admitted to the hospital had his work up had any findings where hospital admission was appropriate and his clinical presentation warranted hospital admission. Lab Data [facility] Lab Attestation statement: I reviewed the patient's lab results. My interpretation of these results are in the MDM Rationale portion of this note. 02/12/25 14:32 05/19/25 14:32 Labs: Lab Results 02/12/25 Range/Units 14:32 WBC 8.6 (4.8-10.8) X10*3/uL RBC 5.11 (4.60-5.80) X10*6/uL Hgb 15.2 (14.0-18.0) g/dl Hct 43.5 (42.0-52.0) % MCV 85.1 (80.0-98.0) fL MCH 29.7 (27.0-33.0) pg MCHC 34.9 (31.0-36.0) g/dl RDW 13.2 (11.0-16.0) % Plt Count 243 (160-400) X10*3/uL MPV 9.3 L (9.4-12.4) fL Immature Gran % (Auto) 0.6 H (0.0-0.4) % Neut % (Auto) 74.4 H (45-73) % Lymph % (Auto) 12.8 L (20-40) % Camb[place] % (Auto) 10.3 (2-11) % Eos % (Auto) 1.4 (0-4) % Baso % (Auto) 0.5 (0-2) % Lymph # (Auto) 1.1 L (1.2-4.9) X10*3/uL [place] # (Auto) 0.9 (0.1-1.2) X10*3/uL Eos # (Auto) 0.1 (0.0-0.4) X10*3/uL Baso # (Auto) 0.0 (0.0-0.2) X10*3/uL Abs Immat Gran (auto) 0.05 H (0.00-0.03) X10*3/uL Absolute Neuts (auto) 6.4 (2.0-8.3) x10*3/uL Absolute Nucleated RBC 0.000 (0.0-0.012) X10*3/uL Nucleated RBC % (auto) 0.0 (0.0-0.2) /100WBC ESR 11 (0-15) MM/HR Sodium 142 (135-145) mmol/L Potassium 4.3 (3.3-5.1) mmol/L Chloride 105 (96-108) mmol/L Carbon Dioxide 31 H (22-29) mmol/L Anion Gap 10 L (12-20) BUN 12 (9-16) mg/dL Creatinine 0.84 (0.5-1.4) mg/dL Estim Creat Clear Calc 72.0 Estimated GFR > 60 Random Glucose 120 H (60-115) mg/dL Calcium 9.6 (8.4-10.2) mg/dL Total Bilirubin 0.4 (0.0-1.0) mg/dL AST 43 H (5-37) U/L ALT 30 (0-40) U/L Alkaline Phosphatase 99 (39-117) U/L C-Reactive Protein 0.39 (< or = 0.50) mg/dL Total Protein 7.8 (6.5-8.0) g/dL Albumin 4.2 (3.5-5.0) g/dL Independent Historian Clinical information obtained from an independent historian. History obtained from or confirmed by: EMS (EMS provided additional history and confirmed the history provided by the patient. ) Tests considered The following testing was considered but not selected: I considered obtaining imaging of the left upper extremity, specifically the hand wrist, however - the patient's clinical presentation and mechanism of injury did not warrant this. I discussed this with the patient who verbalized understanding and agreement. Prescription Management I considered prescription management with: Antibiotic (Patient prescribed an antibiotic for cellulitic dog bite.) Discharge Plan Discharge Clinical Impression: Dog bite Patient Disposition: Home, Self-Care Instructions: Animal Bite (ED) Additional Instructions: Take your antibiotic as prescribed. Follow up with your primary care provider and a hand specialist. Return to the emergency department immediately if your symptoms worsen or if you develop any numbness, tingling, dizziness, shortness of breath, difficulty breathing, chest pain, blurry vision, loss of vision, nausea, vomiting, abdominal pain, fever, chills, back pain, or any other complaints. Please see the information below about our Patient Portal. If you are not yet enrolled in the [facility] Patient Portal, you will receive an enrollment email invitation following your visit to any [facility] setting. You may also self-enroll in the Patient Portal by visiting our website: [email or web address] The following information is required to access the Patient Portal: - Your [facility] Medical Record Number - Your personal home email address (must match what is in your electronic medical record, Registration staff can assist with this) - Name - Date of Capabilities of the Patient Portal: - Message some providers - View upcoming appointments - Access your health summary, medical history, and visit history - View current conditions and allergies - View procedure and lab results - View your medications, including guidelines, side effects, and precautions - Complete pre-appointment questionnaires requested by your provider - Ready summary reports of your office visits and procedures To access the Patient Portal Mobile Jose, follow these directions: - Search Skimbl in the Jose Store or ObjectVideo Store - Download the Jose - Search for [facility] - Enter your login/password Prescriptions: New amoxicillin-pot clavulanate 875-125 mg tablet 1 tab PO BID 10 Days Qty: 20 0RF No Action omega-3 fatty acids 1,000 mg Capsule 1,000 mg PO DAILY cholecalciferol (vitamin D3) 25 mcg (1,000 unit) capsule 25 mcg PO DAILY famotidine 20 mg tablet 20 mg PO DAILY PRN (Reason: Heartburn) Referrals: [facility] Family Medicine [Provider Group] (Call to establish and follow up with a primary care provider. If you already have a primary care provider, please follow up with them.) [facility] Primary CareMary [Provider Group] (Call to establish and follow up with a primary care provider. If you already have a primary care provider, please follow up with them.) [facility] Primary Care, Agata [Provider Group] (Call to establish and follow up with a primary care provider. If you already have a primary care provider, please follow up with them.) [facility] Primary CareSAULO [Provider Group] (Call to establish and follow up with a primary care provider. If you already have a primary care provider, please follow up with them.) [facility] Primary CareGerard [Provider Group] (Call to establish and follow up with a primary care provider. If you already have a primary care provider, please follow up with them.) [facility] Orthopedic Surgeons [Provider Group] (Call to establish and follow up with a hand specialist. ) Print Language: Croatian
[2025-02-12 13:30] VITALS: BP 122/83; BP 180/86; PULSE 66; PULSE 68; RESP 16; TEMP 36.2; O2SAT 100; O2SAT 99; BMI 27.7
[2025-02-12 14:35] LABS: MANUAL DIFF FLAG NO
[2025-02-12 14:37] LABS: Basophils Percent Auto 0.5 % (0-2); Eosinophils Absolute Auto 0.1 X10*3/uL (0.0-0.4); Eosinophils Percent Auto 1.4 % (0-4); Hematocrit 43.5 % (42.0-52.0); Hemoglobin 15.2 g/dl (14.0-18.0); Imm Gran Abs Auto 0.05 X10*3/uL (0.00-0.03); Imm Gran Pct Auto 0.6 % (0.0-0.4); Lymphocytes Absolute Auto 1.1 X10*3/uL (1.2-4.9); Lymphocytes Percent Auto 12.8 % (20-40); Mean Corpuscular HGB Conc 34.9 g/dl (31.0-36.0); Mean Corpuscular Hemoglobin 29.7 pg (27.0-33.0); Mean Corpuscular Volume 85.1 fL (80.0-98.0); Mean Platelet Volume 9.3 fL (9.4-12.4); Monocytes Absolute Auto 0.9 X10*3/uL (0.1-1.2); Monocytes Percent Auto 10.3 % (2-11); Neutrophils Absolute Auto 6.4 x10*3/uL (2.0-8.3); Neutrophils Percent Auto 74.4 % (45-73); Platelet Count 243 X10*3/uL (160-400); Red Blood Count 5.11 X10*6/uL (4.60-5.80); Red Cell Distribution Width 13.2 % (11.0-16.0); White Blood Count 8.6 X10*3/uL (4.8-10.8)
[2025-02-12 15:03] LABS: Alanine Aminotransferase 30 U/L (0-40); Albumin Level 4.2 g/dL (3.5-5.0); Alkaline Phosphatase 99 U/L (39-117); Anion Gap 10 (12-20); Aspartate Amino Transferase 43 U/L (5-37); Bilirubin Total 0.4 mg/dL (0.0-1.0); Blood Urea Nitrogen 12 mg/dL (9-16); C Reactive Protein 0.39 mg/dL (< or = 0.50); Calcium 9.6 mg/dL (8.4-10.2); Carbon Dioxide 31 mmol/L (22-29); Chloride 105 mmol/L (96-108); Estimated Glomerular Filt Rate > 60; Glucose Random 120 mg/dL (60-115); Potassium 4.3 mmol/L (3.3-5.1); Sodium 142 mmol/L (135-145); Total Protein 7.8 g/dL (6.5-8.0)
[2025-02-12 15:13] LABS: Erythrocyte Sedimentation Rate 11 MM/HR (0-15)
[2025-02-12] MEDS: Diphth,Pertus(ACell),Tet Adult 0.5 ML SYRINGE IM (15:53)
--- OUTSIDE RECORDS SUMMARY | 2025-02-12 15:55 | XMS_ITS ---
Author Organization [facility] Address [address] [place] [phone] Care Team Providers Care Waterproofing Machine Operator Name Role Phone Miguel GRIMES, Carmen Primary Care Provider Eliazar Waddell Unavailable [phone] REASON FOR VISIT screening,hx polyps Encounters Encounter Location Date Provider Diagnosis [facility] [place] [address] [place] [phone] 10/27/2024 Eliazar Armando Plan Of Treatment No Information Progress Notes * VIKKI FLOREZ MDOB:[birth year] (74 yo M)Acc No.[id number]:10/27/2024 COLON WITH MAC Patient:?VIKKI VIKKI Obrien Provider:?Eliazar Armando MD :1950???Age:74 Y???Sex:Male Dharmesh e:10/27/2024 Address:[address] [place], [place] [phone] Pcp:Carmen Rivera MD Subjective: * Chief Complaints: * ???1. Screening,hx polyps. * Medical History:? Objective: * Vitals:? Assessment: Plan: * Treatment: * * The named appointment provid er may or may not be the originator of this progress note, and it is not deemed complete until electronically signed by the appointment provider. Sign off status: Pending * Provider:?Eliazar Armando MD Date:? 025 Generated for Isabel nieto/Delfina/eTransmitting on:?02/12/2025 03:55 PM EDT
--- OUTSIDE RECORDS SUMMARY | 2025-02-12 15:55 | XMS_ITS ---
Author Organization [facility] Address [address] [place] [phone] Care Team Providers Care Dinkey Locomotive Operator Name Role Phone Carmen Rivera MD Primary Care Provider Eliazar Waddell Unavailable [phone] REASON FOR VISIT patient cancelled procedure Encounters Encounter Location Date Provider Diagnosis [facility] [address] [place] [phone] 10/27/2024 Eliazar Armando Plan Of Treatment No Information Progress Notes * VIKKI FLOREZ MDOB:[birth year] (74 yo M)Acc No.[id number]:10/27/2024 Patient:?VIKKI FLOREZ :1950???Age:74 Y???Sex:Male Address:[address] [place] [id number] * true * Date:? Generated for Isabel nieto/Delfina/eTransmitting on:?02/12/2025 03:55 PM EDT
[2025-02-12 15:56] VITALS: BP 122/83; PULSE 66; RESP 16; TEMP 36.2; O2SAT 100
--- OUTSIDE RECORDS SUMMARY | 2025-02-12 15:56 | XMS_ITS ---
Author Organization [facility] Address [address] [place] [phone] Care Team Providers Care Right Of Way Buyer Name Role Phone Carmen Rivera MD Primary Care Provider Eliazar Waddell Unavailable [phone] REASON FOR VISIT colon screening Encounters Encounter Location Date Provider Diagnosis [facility] [place] [address], [place] [phone] 11/27/2024 Eliazar Armando Colon cancer scree niki Z12.11 ; History of colon polyps Z86.0100 ; Diverticulosis of colon K57.30 and Internal hemorrhoids K64.8 Assessments Encounter Date Diagnosis (ICD Code) Assessment Notes Treatment Notes Treatment Clinical Notes Section Notes 11/27/2024 Colon cancer screening (ICD-10 - Z12.11) 11/27/2024 History of colon polyps (ICD-10 - Z86.0100) 11/27/2024 Diverticulosis of colon (ICD-10 - K57.30) 11/27/2024 Internal hemorrhoids (ICD-10 - K64.8) Plan Of Treatment No Information Progress Notes * VIKKI FLOREZ MDOB:[birth year] (74 yo M)Acc No.[id number]:11/27/2024 COLON WITH MAC Patient:?VIKKI FLOREZ Provider:?Eliazar Armando MD :1950???Age:74 Y???Sex:Male Dharmesh e:11/27/2024 Address:[address] [place], [place] [phone] Pcp:Carmen Rivera MD Subjective: * Chief Complaints: * ???1. Colon screening. * Medical History:? Objective: * Vitals:? Assessment: * Assessment: 1.?Colon cancer screening - Z12.11 (Primary)???2.?History of colon polyps - Z86.0100???3.?Diverticulosis of colon - K57.30???4.?Internal hemorrhoids - K64.8??? Plan: * Treatment: * Procedure Codes:?44822 DIAGN OSTIC COLONOSCOPY, Modifiers: 33 , 0528F RCMND FLW- UP 10 YRS DOCD, Modifiers: 8P * * The named appointment provid er may or may not be the originator of this progress note, and it is not deemed complete until electronically signed by the appointment provider. Sign off status: Pending * Provider:?Eliazar Armando MD Date:? 025 Generated for Isabel nieto/Delfina/Koko on:?02/12/2025 03:55 PM EDT
--- OUTSIDE RECORDS SUMMARY | 2025-02-12 15:56 | XMS_ITS | Clinical Summary ---
Author Organization [facility] Address [address] [place] [address] Care Team Providers Care Credit Specialist Name Role Phone Unavailable Primary Care Provider Unavailabl e Allergies No known active allergies Medications aspirin enteric coated (aspirin enteric coated) 81 MG EC tablet Take 81 mg by mouth. Active cholecalciferol (CHOLECALCIFERO L) 10 MCG (400 UNIT) tablet Take 400 Units by mouth. Active omega-3 fatty acids (omega-3 fatty acids) 1000 MG Cap capsule Take 1 capsule by mouth daily. Active Active Problems No known active problems Social History Tobacco Use Types Packs/Day Years Used Date Smoking Tobacco: Never Smokeless Tobacco: Never Sex and Gender Information Value Date Recorded Sex Assigned at Not on file Legal Sex Male 12:32 PM EST Gender Identity Not on file Sexual Orientation Not on file Last Filed Vital Signs Vital Sign Reading Time Taken Comments Blood Pressure 149/81 09/20/2021 1:02 PM EST Pulse 68 09/20/2021 1:02 PM EST Temperature 36.5 ??C (97.7 ??F) 09/20/2021 1:02 PM ES T Respiratory Rate - - Oxygen Saturation 99% 09/20/2021 1:02 PM EST Inhaled Oxygen Concentration - - Weight 79.4 kg (175 lb) 09/20/2021 1:02 PM EST Height - - Body Mass Index - - Plan of Treatment Health Maintenance Due Date Last Done Comments Hepatitis C Virus Screening 1950 DTaP/Tdap/Td Vaccines (1 - Tdap) 02/29/1968 Colonoscopy 1994 Pneumococcal Vaccines 50+ (1 of 1 - PCV) 1999 Zoster (Shingles) Vaccine (1 of 2) 1999 RSV Vaccine 60 years and old er and Patients (1 - 1-dose 75+ series) 02/29/2024 COVID-19 Vaccine (1 - 4-2 5 season) 2024 Influenza Vaccine 04/27/2025 Hepatitis B Vaccines Aged Out No long er eligible based on patient's age to complete this topic Insurance BLUE CROSS [employer] MEDICARE
--- OUTSIDE RECORDS SUMMARY | 2025-02-12 15:56 | XMS_ITS ---
Author Name [facility] Organization Unknown Encounters Encounter Type Encounter Reason Primary Diagnosis Location Date Ambulatory Acute upper respiratory infection, unspecified [facility] 09/20/2021 Care Team Organization Name Specialty Phone Email Start Date End Da te [facility] 09/20/2021 05/15/2024 [facility] 09/20/2021 09/20/2021
--- OUTSIDE RECORDS SUMMARY | 2025-02-12 15:56 | XMS_ITS | Patient Health Record ---
Author Organization 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 Rivera' office to [facility] [place] [facility] referral for visit with Dr. Armando on 10-04-2023 for a screening colon [phone] Referral Priority Routine Medications Medication SIG (Take, Route, Frequency, Duration) Notes Start Date End Date Status Vitamin D (Ergocalciferol) 1 capsule Ora lly once a week Active Fish Oil 1000 MG 1 capsule Orally Onc e a day Active Immunizations Vaccine Route Administration Date Status Comme nts Influenza Unknown 06/27/2019 Administered Influenza Unknown 06/20/2024 Administered Social History Tobacco Use: Social History Observation Description Date Details (start date - stop date) Never Smoker NA - NA Tobacco Use/Smoking Question Answer Notes Patient is a nonsmoker Alcohol Screen Question Answer Notes Did you have a drink contain ing alcohol in the past year? Yes How often did you have a dri nk containing alcohol in the past year? Monthly or less (1 point) How many drinks did you have on a typical day when you were drinking in the past year? 1 or 2 drinks (0 point) How often did you have 6 or more drinks on one occasion in the past year? Never (0 point) Points 1 Interpretation Negative Section Notes: One or two beers couple time s a week; nonsmoker Occ beer; nonsmoker Problems Problem Type SNOMED Code ICD Code Onset Dates Problem Status W/U Status Risk Notes Problem 403045221 Encounter for screening for malignant neoplasm of colon (Z12.11) Active confirmed Problem History of polyp of colon (situation) (476965790) Personal history of colonic polyps (Z86.010) Active confirmed Problem Pre-procedure evaluation check (853323717) Encounter for other preprocedural examination (Z01.818) Active confirmed Problem [id number] Preprocedural examination (Z01.818) Active confirmed Vital Signs Temperature 97.5 degrees Fahrenheit 10/04/2024 Blood pressure diastolic 00 mm Hg 10/04/2024 Height 67 in 10/04/2024 Blood pressure systolic 000 mm Hg 10/04/2024 Weight 168 lb 4 oz lbs 10/04/2024 BMI 26.35 kg/m2 10/04/2024 Encounters Encounter Location Date Provider [place] [facility] [place] [facility] [address], [place] [phone] 11/27/2024 Eliazar Armando Colon cancer screeni ng Z12.11 ; History of colon polyps Z86.0100 ; Diverticulosis of colon K57.30 and Internal hemorrhoids K64.8 [facility] [address] [place] [phone] 10/04/2024 Eliazar Armando Personal history of colonic polyps Z86.010 ; Encounter for other preprocedural examination Z01.818 and Encounter for screening for malignant neoplasm of colon Z12.11 [facility] [address] [place] [phone] 10/25/[address] [facility] [address] [place] [phone] 10/27/2024 Eliazar Armando Assessments Encounter Date Diagnosis (ICD Code) Assessment Notes Treatment Notes Treatment Clinical Notes Section Notes 11/27/2024 Colon cancer screening (ICD-10 - Z12.11) 11/27/2024 History of colon polyps (ICD-10 - Z86.0100) 10/04/2024 Personal history of colonic polyps (ICD-10 - Z86.010) Stop fish oil for 1 week before the colonoscopy Overall, Erik appears quite well. Given his previous history of tubular adenomas removed just about 5 years ago, his age, and excellent clinical appearance, I did recommend a followup colonoscopy for further screening purposes. We did review the rationale for that in regard to colon cancer prevention. Full consent was obtained for this, including risks of bleeding and perforation. The procedure will be done with monitored anesthesia care. He was advised to stop fish oil for one week before the procedure. Erik was comfortable with this plan. Thank you again for allowing me to participate in Erik's care. I shall continue to keep you advised of his progress. 10/04/2024 Encounter for other preprocedural examination (ICD-10 - Z01.818) Overall, Erik appears quite well. Given his previous history of tubular adenomas removed just about 5 years ago, his age, and excellent clinical appearance, I did recommend a followup colonoscopy for further screening purposes. We did review the rationale for that in regard to colon cancer prevention. Full consent was obtained for this, including risks of bleeding and perforation. The procedure will be done with monitored anesthesia care. He was advised to stop fish oil for one week before the procedure. Erik was comfortable with this plan. Thank you again for allowing me to participate in Erik's care. I shall continue to keep you advised of his progress. 11/27/2024 Diverticulosis of colon (ICD-10 - K57.30) 10/04/2024 Encounter for screening for malignant neoplasm of colon (ICD-10 - Z12.11) Overall, Erik appears quite well. Given his previous history of tubular adenomas removed just about 5 years ago, his age, and excellent clinical appearance, I did recommend a followup colonoscopy for further screening purposes. We did review the rationale for that in regard to colon cancer prevention. Full consent was obtained for this, including risks of bleeding and perforation. The procedure will be done with monitored anesthesia care. He was advised to stop fish oil for one week before the procedure. Erik was comfortable with this plan. Thank you again for allowing me to participate in Erik's care. I shall continue to keep you advised of his progress. 11/27/2024 Internal hemorrhoids (ICD-10 - K64.8) Plan Of Treatment Future Test Test Name Order Date COLONOSCOPY 10/31/2019 COLONOSCOPY 10/04/2024 Insurance Providers Payer Name Payer Address Payer Phone Subscriber Number Group Number Insured Name Patient Relationship to Insured Coverage Start Date Coverage End Date [facility] [employer] [address] [place] [address] [id number] ERIK FLOREZ Self - patient is the insured Medical (General) History Medical History History ICD Code Denies [place],DM,CVA,Lung disease,renal dise ase Neg screening colonoscopy in 08/2009 exc ept for a hyperplastic polyp Colonoscopy 10/2019 with 2 small tubular adenomas removed Surgical History Surgery Date(Month/Year) tonsillectomy vasectomy cataracts bilaterally appendectomy
== END 2025-02-12 15:57 | disposition home or self-care (01) ==
PROVIDERS: Physician Assistant Medical; Emergency Provider Emergency Medicine
DX: S61.552A Open bite of left wrist, initial encounter (principal); S31.159A Open bite of abdominal wall, unspecified quadrant without penetration into peritoneal cavity, initial encounter; W54.0XXA Bitten by dog, initial encounter; Y93.9 Activity, unspecified; Y92.9 Unspecified place or not applicable; Y99.8 Other external cause status; Z79.899 Other long term (current) drug therapy; Z23 Encounter for immunization
CPT/HCPCS: 36415; 80053; 85025; 85652; 86140; 90471; 90715; 99282; 99284

== ENCOUNTER 2025-02-21 13:03 | Outpatient (AMB) | payer MEDICARE, SELFPAY ==
--- OUTSIDE RECORDS SUMMARY | 2025-02-21 13:50 | XMS_ITS ---
Author Organization [facility] Address [address] [place] [phone] Care Team Providers Care Pain Coordinator Name Role Phone Miguel GRIMES, Carmen Primary Care Provider Eliazar Waddell Unavailable [phone] REASON FOR VISIT screening,hx polyps Encounters Encounter Location Date Provider Diagnosis [facility] [place] [address] [place] [phone] 10/27/2024 Eliazar Armando Plan Of Treatment No Information Progress Notes * VIKKI FLOREZ MDOB:[birth year] (74 yo M)Acc No.[id number]:10/27/2024 COLON WITH MAC Patient:?VIKKI VIKKI Obrien Provider:?Eliazar Armando MD :1950???Age:74 Y???Sex:Male Dharmesh e:10/27/2024 Address:[address] [place], [place] [id number] Pcp:Carmen Rivera MD Subjective: * Chief Complaints: [...] MD Date:? 025 Generated for Isabel nieto/Delfina/eTransmitting on:?02/21/2025 01:50 PM EDT
--- NOTE | 2025-02-21 14:19 | A.OFFPC_ITS ---
Vital Signs 02/21/25 14:21 Height 5 ft 5 in Weight 163 lb 2 oz BMI 27.1 BP 126/72 Blood Pressure Location Rt brachial Position Sitting Respiration 20 Pulse 64 Pulse Source Pulse Oximeter Temp 98 F Temp Source Oral Pulse Oximetry (%) 99 Oxygen Delivery Method Room Air Intake Visit Reasons: Cognitive complaints/dog bite to hand. Per Dr. Aponte Intake Note: Pt is here, dog bites on hands anad legs no pain or itching. Allergies No Known Allergies Allergy (Verified 02/21/25 15:15) Medication List - Last Reconciled 02/21/25 by Carmen Rivera MD cholecalciferol (vitamin D3) 25 mcg PO DAILY Tobacco use date assessed: 02/21/25 Fall risk assessment: No Falls in past year Last assessed Fall Risk: 02/21/25 Dental Screening Dental Screen Date: 02/21/25 Did you have a dental visit in the last 12 months?: Yes Did you have a dental problem in the last 6 months where you did not have access to dental care?: No Was dental information given to patient?: Patient has dentist HPI Cognitive complaints/dog bite to hand. Per Dr. Aponte HPI Details 74-year-old male here today for follow-u p after recent ER visit for dog bite, received tetanus shots, and was placed on Augmentin, which she already completed take bite wounds on his hands have healed completely denies any pain, stiffness or redness over said areas. He also complains of having increasing poor memory. Has been keeping a calendar to remember things, but lately he has also been entering the wrong d ates in the calendar denies misplacing a lot of things, does not have any difficulty remember ring people's names but does have difficulty remembering dates. He is now retired and spends most of his time indoors just reading. Previously was doing a lot of bike riding before the pandemic, has not resumed data activity Mini-mental status exam done today showed a score of 27/30. [facility] Medical History Elevated liver transaminase level Hypertriglyceridemia Impaired fasting glucose Hx of renal calculi Erectile dysfunction Esophageal dysmotility Sliding hiatal hernia GERD (gastroesophageal reflux disease) Surgical History History of cataract surgery H/O vasectomy History of tonsillectomy and adenoidectomy History of appendectomy Family History Father Unknown family medical history Mother Unknown family medical history Social History Housing: House Alcohol intake: current Patient Tobacco Use Status: Never used Tobacco e-Cigarette/Vaping Use: Never Used Advance Directives Date on File: 07/11/20 service: No Current occupational status: retired Cognitive needs: No Hearing needs: No Vision needs: Yes Questionnaire Thrive Questionnaire Date Thrive assessed: 07/27/24 I am a: Patient What is your living situation today?: I have a steady place to live Within the past 12 months, did the food you bought not last and you didn't have the money to get more?: Never true Within the past 12 months, did you worry whether your food would run out before you got money to buy more?: Never true Do you have trouble paying for medicines?: No Do you have trouble getting transportation to medical appointments?: No Do you have trouble paying your heating and electricity bill?: No Do you have trouble taking care of your child, family member or friend?: No Do you have trouble with day-to-day activities such as bathing, preparing meals, shopping, managing finances, etc.?: No Are you currently unemployed and looking for a job?: No Are you interested in more education?: No Please select the resources that you would like help with: None Currently or been in a relationship where the following occur: No concerns reported THRIVE Score: 0 RIP-7 AMB Questionnaire RIP-7 Date RIP - 7 assessed: 01/18/23 Source: Developed by Drs. Eliazar Clancy, Anabel Burnett, Zhou Kenney and colleagues, with an educational olya from [employer]. Review of Systems Const All systems reviewed & are unremarkable except as noted in HPI and below Physical exam (Primary Care) Vital Signs: Last Vital Signs Temp 98 F 02/21/25 14:21 Pulse 64 02/21/25 14:21 Resp 20 02/21/25 14:21 BP 126/72 02/21/25 14:21 Pulse Ox 99 02/21/25 14:21 Oxygen Delivery Method Room Air 02/21/25 14:21 BMI result Body Mass Index 27.1 Tobacco/Smoking Status: Tobacco use Status Tobacco use date assessed 02/21/25 02/21/25 14:28 Patient Tobacco Use Status Never used Tobacco 02/21/25 14:28 e-Cigarette/Vaping Use Never Used 02/21/25 14:28 Thrive Assessment: Date of Thrive Assessment Date Thrive assessed 07/27/24 02/21/25 14:28 Currently or been in a relationship where the following occur: No concerns reported Const General: no acute distress and alert Orientation/consciousness: patient oriented x3 HENMT Ears: external ears normal General nose exam: Normal external nose present Mouth: oropharynx normal and moist mucous membranes Eyes General: appearance normal, both eyes and all related structures Conjunctivae: conjunctivae normal Sclerae: sclerae normal Pupils: Equal, round and reactive pupils present EOM: EOMs intact bilaterally Neck Neck: Yes full ROM, Yes no lymphadenopathy and Yes supple Resp Effort & Inspection: normal respiratory effort and able to speak in complete sentences Auscultation: clear to auscultation bilaterally Cardio Rate: regular rate Rhythm: regular rhythm Heart sounds: S1 normal heart sound present and S2 normal heart sound present GI Palpation (GI): nontender Auscultation: normal bowel sounds Back/Spine/Pelvis Other: Mild kyphosis noted Skin Other: Healed bite wounds on right palm and left thumb General skin exam: no rashes or lesions noted Neuro General: patient oriented x3, gait normal, tone normal, moves all extremities, Normal light touch and pain sensation and no focal motor deficits Cranial nerves: Yes CN's II-XII intact bilaterally and Yes Equal, round and reactive pupils present Cognition (Neuro): normal cognition Extrem General: Yes full ROM, Yes no joint enlargement, Yes no clubbing, cyanosis or edema and Yes no calf tenderness Psych Appearance: grossly normal and well kempt Mental Status: mental status grossly normal Speech and movement: Normal speech and movement present Affect: normal affect Attitude: cooperative Thought process: Normal thought process present Orientation What is the (year) (season) (date) (day) (month)?: year (2024), season (spring), date (unable ), day (unable) and month (january) Where are we (state) (county) (town or city) (hospital) (floor)?: state ([place]), town or city ([place]) and hospital/clinic ([facility]) Registration Name of 3 unrelated objects clearly and slowly, then ask patient to repeat all 3 of them. (1st repeat determines score. Make sure they can repeat all three): object 1 (Shoe), object 2 (Watch) and object 3 (Eyeglasses) Attention & Calculation (CHOOSE ONE) Ask pt to begin with 100 & count backward by 7. Stop after 5 repeats. If pt cannot ask them to spell the word WORLD backward.: 93, 86, 79, 72 and 65 Recall Ask patient to repeat the 3 items from question #3.: object 1 (Shoe) and object 2 (Watch) Language Show patient a wristwatch & ask what it is. Repeat for pencil.: watch and pencil Ask the patient to repeat the phrase 'No ifs, ands, or buts' after you.: correct Ask the patient to 'take a piece of paper with their right hand' 'fold paper in half' 'place paper on floor': take paper in right hand, fold paper in half and place paper on floor Print the sentence 'CLOSE YOUR EYES' on a piece. If patient actually closes eyes then score.: followed written direction Give patient a blank piece of paper & ask to write a sentence. Score if it contains a noun & verb.: sentence contains subject and verb Ask patient to copy figure of intersecting pentagons exactly. Score if all 10 angles & 2 intersects are included.: all 10 angles present & 2 are intersected Score Score: 27 Coding Level of Care Code Est Pt Level 4 (26795) Complex EM visit Add On G2211 Diagnoses History of dog bite Z78.9 Memory change R41.3 Assessment & Plan Assessment & Plan (1) History of dog bite: Code(s): Z78.9 - Other specified health status Plan: Wounds on both hands have completely healed, patient already completed taking his Augmentin and is up-to-date with his tetanus diphtheria booster (2) Memory change: Code(s): R41.3 - Other amnesia Plan: Mini-mental status exam score is 27/30. Patient advised to, eat a healthy balanced diet rich in fruits vegetables and Hume 3 fatty acids can support brain health and improve memory, Engage in activities that challenge your brain, such as puzzles, games, and learning new skills.?Crosswords, Sudoku, and brain- training apps can also be beneficial, regular physical activity including aerobic exercises increases blood flow to the brain which can enhance cognitive function and memory.Getting enough sleep is crucial for memory consolidation and recall Orders: Orders Basic Metabolic Panel Fasting 08/27/25 E78.1 - Pure hyperglyceridemia, K21.9 - Gastro-esophageal reflux disease without esophagitis, R74.01 - Elevation of levels of liver transaminase levels PSA,Total (Free>4and<10) 08/27/25 E78.1 - Pure hyperglyceridemia, K21.9 - Gastro-esophageal reflux disease without esophagitis, R74.01 - Elevation of levels of liver transaminase levels Vitamin D 25-OH Total 08/27/25 E78.1 - Pure hyperglyceridemia, K21.9 - Gastro-esophageal reflux disease without esophagitis, R74.01 - Elevation of levels of liver transaminase levels Hemoglobin A1c 08/27/25 R73.01 - Impaired fasting glucose Alanine Aminotransferase 08/27/25 E78.1 - Pure hyperglyceridemia, K21.9 - Gastro-esophageal reflux disease without esophagitis, R74.01 - Elevation of levels of liver transaminase levels Aspartate Amino Transferase 08/27/25 E78.1 - Pure hyperglyceridemia, K21.9 - Gastro-esophageal reflux disease without esophagitis, R74.01 - Elevation of levels of liver transaminase levels Lipid Panel 08/27/25 E78.1 - Pure hyperglyceridemia, K21.9 - Gastro-esophageal reflux disease without esophagitis, R74.01 - Elevation of levels of liver transaminase levels TSH reflex Free T4 08/27/25 E78.1 - Pure hyperglyceridemia, K21.9 - Gastro- esophageal reflux disease without esophagitis, R74.01 - Elevation of levels of liver transaminase levels
[2025-02-21 14:21] VITALS: BP 126/72; PULSE 64; RESP 20; TEMP 36.6; O2SAT 99; BMI 27.1
== END 2025-02-21 15:15 | disposition home or self-care (01) ==
LOC: HO.HMCC 13:04
PROVIDERS: PCP Internal Medicine; Visit Provider Internal Medicine
DX: Z78.9 Other specified health status (principal); R41.3 Other amnesia

== ENCOUNTER → 2025-02-21 13:03 | Outpatient (BNVA) | payer MEDICARE, SELFPAY | PROVIDERS: PCP Internal Medicine; Visit Provider Internal Medicine | DX: S61.452D Open bite of left hand, subsequent encounter (principal); S61.451D Open bite of right hand, subsequent encounter; W54.0XXD Bitten by dog, subsequent encounter; R41.3 Other amnesia | CPT/HCPCS: 99212 ==

== ENCOUNTER 2025-09-04 09:00 | Outpatient (AMB) | payer MEDICARE, SELFPAY ==
--- NOTE | 2025-09-04 09:12 | MHC.PC.OV ---
Vital Signs 09/04/25 09:20 Height 5 ft 5 in Weight 163 lb BMI 27.1 BP 110/70 Blood Pressure Location Lt brachial Position Sitting Respiration 16 Pulse 66 Pulse Source Pulse Oximeter Temp 98.1 F Temp Source Oral Pulse Oximetry (%) 99 Oxygen Delivery Method Room Air Intake Visit Reasons: PE Intake Note: Pt is here today for his PE: Last colonoscopy 11/21/19 Marketing Ambassador Required: No Allergies No Known Allergies Allergy (Verified 09/04/25 09:36) Medication List - Last Reconciled 09/04/25 by Carmen Rivera MD cholecalciferol (vitamin D3) 25 mcg PO DAILY Tobacco use date assessed: 09/04/25 Fall risk assessment: No Falls in past year Last assessed Fall Risk: 09/04/25 Dental Screening Dental Screen Date: 09/04/25 Did you have a dental visit in the last 12 months?: Yes Did you have a dental problem in the last 6 months where you did not have access to dental care?: No Was dental information given to patient?: Patient has dentist [facility] Medical History (Updated 09/04/25 @ 10:06 by Carmen Rivera MD) Hx of fracture of tibia Elevated liver transaminase level Hypertriglyceridemia Impaired fasting glucose Hx of renal calculi Erectile dysfunction Esophageal dysmotility Sliding hiatal hernia GERD (gastroesophageal reflux disease) Surgical History (Updated 09/04/25 @ 09:40 by Carmen Rivera MD) Hx of colonoscopy History of cataract surgery H/O vasectomy History of tonsillectomy and adenoidectomy History of appendectomy Family History Father Unknown family medical history Mother Unknown family medical history Social History Housing: House Alcohol intake: current Patient Tobacco Use Status: Never used Tobacco e-Cigarette/Vaping Use: Never Used Advance Directives Date on File: 07/11/20 service: No Current occupational status: retired Cognitive needs: No Hearing needs: No Vision needs: Yes Questionnaire PHQ-9 Over the last 2 weeks, how often have you been bothered by any of the following problems? 1. Little interest or pleasure in doing things: not at all 2. Feeling down, depressed, or hopeless: not at all 3. Trouble falling or staying asleep, or sleeping too much: not at all 4. Feeling tired or having little energy: not at all 5. Poor appetite or overeating: not at all 6. Feeling bad about yourself - or that you are a failure or have let yourself or your family down: not at all 7. Trouble concentrating on things, such as reading the newspaper or watching television: not at all 8. Moving or speaking so slowly that other people could have noticed. Or the opposite - being so fidgety or restless that you have been moving around a lot more than usual: not at all 9. Thoughts that you would be better off or of hurting yourself in some way: not at all Total score: 0 Depression Screening Interpretation: Negative Depression Screening Done: Yes 33739 - PHQ-9 Billing: Yes Source: Developed by Drs. Eliazar Clancy, Anabel Burnett, Zhou Kenney and colleagues, with an educational olya from [employer]. Thrive Questionnaire Date Thrive assessed: 09/04/25 I am a: Patient What is your living situation today?: I have a steady place to live Within the past 12 months, did the food you bought not last and you didn't have the money to get more?: Never true Within the past 12 months, did you worry whether your food would run out before you got money to buy more?: Never true Do you have trouble paying for medicines?: No Do you have trouble getting transportation to medical appointments?: No Do you have trouble paying your heating and electricity bill?: No Do you have trouble taking care of your child, family member or friend?: No Do you have trouble with day-to-day activities such as bathing, preparing meals, shopping, managing finances, etc.?: No Are you currently unemployed and looking for a job?: No Are you interested in more education?: No Please select the resources that you would like help with: None Currently or been in a relationship where the following occur: No concerns reported THRIVE Score: 0 AUDIT C Alcohol Use Questionnaire (AUDIT-C) 1. How often do you have a drink containing alcohol?: 2-4 times a month 2. How many drinks containing alcohol do you have on a typical day when you are drinking?: 1 or 2 3. How often do you have six or more drinks on one occasion?: Never Total Score: 2 Score Reviewed/Action Taken: Yes RIP-7 AMB Questionnaire RIP-7 Date RIP - 7 assessed: 09/04/25 Feeling nervous, anxious, or on edge: 0 = Not at all Not being able to stop or control worryin = Not at all Worrying too much about different things: 0 = Not at all Trouble relaxin = Not at all Being so restless that it is hard to sit still: 0 = Not at all Becoming easily annoyed or irritable: 0 = Not at all Feeling afraid as if something awful might happen: 0 = Not at all Total RIP-7 score (0-4 normal; 5-9 mild; 10-14 moderate; 15-21 severe): 0 Source: Developed by Drs. Eliazar Clancy, Anabel Burnett, Zhou Kenney and colleagues, with an educational olya from [employer]. RIP-7 Assessment Billing RIP-7 Assessment Tool: RIP-7 Assessment 87387 Review of Systems Eyes Details: Goes to [facility] , sees Dr. Daily ENT Details: Sees dentist every 6 months in [place] Physical exam (Primary Care) Vital Signs: Last Vital Signs Temp 98.1 F 09/04/25 09:20 Pulse 66 09/04/25 09:20 Resp 16 09/04/25 09:20 BP 110/70 09/04/25 09:20 Pulse Ox 99 09/04/25 09:20 Oxygen Delivery Method Room Air 09/04/25 09:20 BMI result Body Mass Index 27.1 Tobacco/Smoking Status: Tobacco use Status Tobacco use date assessed 09/04/25 09/04/25 09:14 Patient Tobacco Use Status Never used Tobacco 09/04/25 09:13 e-Cigarette/Vaping Use Never Used 09/04/25 09:13 PHQ-9: PHQ-9 Score PHQ-9: Total score 0 09/04/25 09:40 Depression Screening Interpretation: Negative Thrive Assessment: Date of Thrive Assessment Date Thrive assessed 09/04/25 09/04/25 09:14 Currently or been in a relationship where the following occur: No concerns reported Immunizations pneumoc 20-mallika conj-dip cr(PF) 0.5 mL IM syringe Performing Provider: Carmen Rivera MD Performing Location: [facility] [place] [facility] Administered by: Yudi Arora CMA on 09/04/25 11:22 Dose Route Admin Location Dispensed Lot Number Expiration Date NDC Pallet Stone Inserter 0.5 mL IM Right Deltoid 0.5 mL [id number] 06/26/26 8629-7173-01 WYETH/PFIZER Total Dispensed Waste 0.5 mL 0 % VIS Given Date VIS Provided VIS Publication Date 09/04/25 Single Vaccine 25 Eligibility Eligibility Date Funding Source Not [facility] Eligible 09/04/25 Private Results Reviewed Results Reviewed: Name: Erik Valencia Age/Sex: 74/M : 1950 Unit#: [id number] Attend Dr: Ester Blue MD Re02/12/25 Status: DEP ER [facility]: SPEC : [id number] DOMINIQUE: 02/12/25-143 STATUS: COMP REQ : [id number] RECD: 02/12/25-[address]: Machelle Sanchez COMP: 02/12/25-1503 ENTERED: 02/12/25-[address]: ORDERED: CMP, C Reactive Prot Test Result Flag Reference Sodium 142 135-145 mmol/L Potassium 4.3 3.3-5.1 mmol/L CL 105 96-108 mmol/L CO2 31 H 22-29 mmol/L Gap 10 L 12-20 BUN 12 9-16 mg/dL Creat 0.84 0.5-1.4 mg/dL Estimated CrCl 72.0 eGFR (calculated from the MDRD study equation) and eCrCl (calculated from the Cockcroft-Gault equation) are based on different parameters and may not yield comparable results. If eCrCl result is absurd, please check patient's height/weight. eGFR > 60 Chronic Kidney Disease: Estimated GFR < 60 mL/min/1.73m2 Severe Kidney Disease: Estimated GFR < 15 mL/min/1.73m2 Glucose, Random 120 H 60-115 mg/dL CA 9.6 8.4-10.2 mg/dL Total Bili 0.4 0.0-1.0 mg/dL AST (GOT) 43 H 5-37 U/L ALT (GPT) 30 0-40 U/L CRP 0.39 < or = 0.50 mg/dL Protein, Total 7.8 6.5-8.0 g/dL Alb 4.2 3.5-5.0 g/dL Alk Phos 99 39-117 U/L RUN: 09/04/25 0941 PAGE 1 [facility] [address] [place] [id number] [employer] Canning Leader: Erik Hill M.D. Specimen Inquiry Name: Erik Valencia Age/Sex: 74/M : 1950 Unit#: [id number] Attend Dr: Ester Blue MD Re02/12/25 Status: DEP ER [facility] Dis[facility]: SPEC : [id number] DOMINIQUE: 02/12/25 STATUS: COMP REQ : [id number] RECD: 02/12/[address]: Machelle Sanchez COMP: 02/12/25 ENTERED: 02/12/25 [facility] DR: ORDERED: CBC Auto Diff Test Result Flag Reference WBC 8.6 4.8-10.8 X10*3/uL RBC 5.11 4.60-5.80 X10*6/uL HGB 15.2 14.0-18.0 g/dl HCT 43.5 42.0-52.0 % MCV 85.1 80.0-98.0 fL MCH 29.7 27.0-33.0 pg MCHC 34.9 31.0-36.0 g/dl RDW 13.2 11.0-16.0 % PLT 243 160-400 X10*3/uL MPV 9.3 L 9.4-12.4 fL Neut Pct Auto 74.4 H 45-73 % ImGran Pct Auto 0.6 H 0.0-0.4 % Lymp Pct Auto 12.8 L 20-40 % Mckinley Pct Auto 10.3 2-11 % Eos Pct Auto 1.4 0-4 % Baso Pct Auto 0.5 0-2 % NRBC Pct Auto 0.0 0.0-0.2 /100WBC ANC Neut Abs # 6.4 2.0-8.3 x10*3/uL ImGran Abs Auto 0.05 H 0.00-0.03 X10*3/uL Lymph Abs Auto 1.1 L 1.2-4.9 X10*3/uL Mckinley Abs Auto 0.9 0.1-1.2 X10*3/uL Eos Abs Auto 0.1 0.0-0.4 X10*3/uL Baso Abs Auto 0.0 0.0-0.2 X10*3/uL NRBC Abs Auto 0.000 0.0-0.012 X10*3/uL Coding Diagnoses Impaired fasting glucose R73.01 Hypertriglyceridemia E78.1 Elevated liver transaminase level R74.01 Annual visit for general adult medical examination with abnormal findings Z00. Additional Codes RIP-7 Assessment Billing - RIP-7 Assessment Tool: RIP-7 Assessment 40251 ([id number]) PHQ-9 - 77610 - PHQ-9 Billing: Yes ([id number]) Assessment & Plan Assessment & Plan (1) Impaired fasting glucose: Code(s): R73.01 - Impaired fasting glucose Category: Medical (2) Hypertriglyceridemia: Code(s): E78.1 - Pure hyperglyceridemia Category: Medical (3) Elevated liver transaminase level: Code(s): R74.01 - Elevation of levels of liver transaminase levels Category: Medical (4) Annual visit for general adult medical examination with abnormal findings: Code(s): Z00.01 - Encounter for general adult medical examination with abnormal findings Orders: Orders Pneumococcal 20 Immunization Today Z23 - Encounter for immunization
[2025-09-04 09:20] VITALS: BP 110/70; PULSE 66; RESP 16; TEMP 36.7; O2SAT 99; BMI 27.1
== END 2025-09-04 10:08 | disposition home or self-care (01) ==
LOC: HO.HMCC 09:00
PROVIDERS: PCP Internal Medicine; Visit Provider Internal Medicine
DX: Z23 Encounter for immunization (principal)

== ENCOUNTER 2025-09-04 09:00 | Outpatient (REF) | payer MEDICARE, SELFPAY ==
[2025-09-04 14:52] LABS: Alanine Aminotransferase 27 U/L (0-40); Anion Gap 9 (12-20); Aspartate Amino Transferase 38 U/L (5-37); Blood Urea Nitrogen 14 mg/dL (9-16); Calcium 10.0 mg/dL (8.4-10.2); Carbon Dioxide 31 mmol/L (22-29); Chloride 110 mmol/L (96-108); Cholesterol 78 mg/dL (<200); Estimated Glomerular Filt Rate > 60; HDL Cholesterol 38 mg/dL (>40); Potassium 4.7 mmol/L (3.3-5.1); Sodium 145 mmol/L (135-145); Triglycerides 62 mg/dL (<150)
[2025-09-04 15:03] LABS: PSA,Total (Free>4and<10) 1.27 ng/mL (0.00-4.00)
== END 2025-09-04 09:01 | disposition home or self-care (01) ==
LOC: HO.HMGCLDS 09:00
PROVIDERS: PCP Internal Medicine; Visit Provider Internal Medicine
DX: Z00.01 Encounter for general adult medical examination with abnormal findings (principal); Z23 Encounter for immunization; Z12.5 Encounter for screening for malignant neoplasm of prostate; R73.01 Impaired fasting glucose; E78.1 Pure hyperglyceridemia; R74.01 Elevation of levels of liver transaminase levels; K21.9 Gastro-esophageal reflux disease without esophagitis; Z71.89 Other specified counseling
CPT/HCPCS: 36415; 80048; 80061; 82306; 83036; 84153; 84443; 84450; 84460; 90471; 90677; 96127; 99397